=== PATIENT | male | born 1975 | race Caucasian/White ===

== ENCOUNTER 2022-04-01 18:53 | Emergency (ER) | payer OTHER ==
[~2022-04-01] VITALS: Ht 175.3 cm; Wt 91.6 kg
[2022-04-01 19:44] VITALS: BP 137/71
[2022-04-01] MEDS ORDERED: ORPH100T2 PO (20:50)
[2022-04-01] MEDS ORDERED: ketorolac trometh inj. 60 MG/2 ML VIAL IM ONE (20:50)
== END 2022-04-01 21:23 | disposition home or self-care (01) ==
LOC: ER 18:54
DX: S39.012A Strain of muscle, fascia and tendon of lower back, initial encounter (principal); M62.830 Muscle spasm of back; X50.1XXA Overexertion from prolonged static or awkward postures, initial encounter; Y93.89 Activity, other specified; Y92.89 Other specified places as the place of occurrence of the external cause; Y99.9 Unspecified external cause status
CPT/HCPCS: 96372; 99283; J1885